=== PATIENT | female | born 1970 | race American Indian/Alaskan Native ===

== ENCOUNTER 2017-08-07 10:22 | Emergency (ER) | payer OTHER ==
[2017-08-07 10:34] VITALS: RESP 18; O2SAT 100
--- NOTE | 2017-08-07 10:36 | C.PDOC ---
History Of Present Illness 47 y/o female presents to ED with c/o epigastric abdominal pain since 2 am. Notes pain is intermittent. No exacerbating factors. Denies fever, nausea, vomiting, diarrhea, or other symptoms. Denies alcohol use. Time Seen by Provider: 08/07/17 10:35 Chief Complaint (Nursing): Abdominal Pain History Per: Patient History/Exam Limitations: no limitations Onset/Duration Of Symptoms: Days Current Symptoms Are (Timing): Still Present Location Of Pain/Discomfort: Epigastric Quality Of Discomfort: "Pain" Associated Symptoms: denies: Fever, Vomiting, Diarrhea Recent travel outside of the [place]: No Past Medical History Reviewed: Historical Data, Nursing Documentation, Vital Signs Vital Signs: Last Vital Signs Temp 98.5 F 08/07/17 12:24 Pulse 86 08/07/17 12:24 Resp 18 08/07/17 12:24 BP 128/82 08/07/17 12:24 Pulse Ox 100 08/07/17 12:24 - Medical History PMH: Arthritis Family History: States: Other Other Family History: non contributory - Social History Hx Alcohol Use: No Hx Substance Use: No - Immunization History Hx Tetanus Toxoid Vaccination: No Hx Influenza Vaccination: No Hx Pneumococcal Vaccination: No Review Of Systems Except As Marked, All Systems Reviewed And Found Negative. Constitutional: Negative for: Fever Cardiovascular: Negative for: Chest Pain Respiratory: Negative for: Shortness of Breath Gastrointestinal: Positive for: Abdominal Pain. Negative for: Nausea, Vomiting Skin: Negative for: Rash Physical Exam - Physical Exam Appears: Non-toxic, No Acute Distress Skin: Normal Color, Warm, Dry Head: Atraumatic, Normacephalic Oral Mucosa: Moist Chest: Symmetrical Cardiovascular: Rhythm Regular Respiratory: Normal Breath Sounds, No Rales, No Rhonchi, No Wheezing Gastrointestinal/Abdominal: Soft, Tenderness (epigastric), No Guarding, No Rebound Back: Normal Inspection Extremity: Normal ROM, Capillary Refill (< 2 sec.) Neurological/Psych: Oriented x3, Normal Speech, Normal Cognition ED Course And Treatment - Laboratory Results Result Diagrams: 08/07/17 11:17 08/07/17 11:17 O2 Sat by Pulse Oximetry: 100 (RA) Pulse Ox Interpretation: Normal Medical Decision Making Medical Decision Making: EKG: NSR 78, , nl axis, no acute ischemia 1218pm pt reports sx are improved Disposition - Disposition Referrals: [facility] [Outside] Disposition: HOME/ ROUTINE Disposition Time: 12:18 Condition: IMPROVED Additional Instructions: Please follow up with a primary doctor. Take an antacid such as maalox, mylanta , or TUMS to help with symptoms. Follow diet as directed in attached instructions. Return to the ER for any worsening symptoms or for any other concerns. Prescriptions: Famotidine [Pepcid] 20 mg PO DAILY #14 tab Instructions: Diet for Ulcers and Gastritis (ED) Forms: General Discharge Instructions, [facility] (Chinese) - Clinical Impression Clinical Impression: Epigastric pain - Scribe Statement The provider has reviewed the documentation as recorded by the Scribe SM All medical record entries made by the Scribe were at my direction and personally dictated by me. I have reviewed the chart and agree that the record accurately reflects my personal performance of the history, physical exam, medical decision making, and the department course for this patient. I have also personally directed, reviewed, and agree with the discharge instructions and disposition.
[2017-08-07] MEDS ORDERED: Alum-Mag Hydrox-Simethicone Susp (30 mL) PO STA (10:54)
[2017-08-07] MEDS ORDERED: Aluminum Hydroxide/Magnesium Hydroxide Susp (30 mL) ONE (10:59)
[2017-08-07 11:20] LABS: BASO % 0.6 % (0.0-2.0); EOS # 0.1 K/uL (0.0-0.7); HEMATOCRIT 38.1 % (34.0-47.0); LYMPH # 1.6 K/uL (1.0-4.3); LYMPH % 30.6 % (20.0-40.0); MEAN CELL VOLUME 81.1 fL (81.0-99.0); MEAN CORPUSCULAR HEMOGLOBIN 26.2 pg (27.0-31.0); MEAN CORPUSCULAR HGB CONC 32.3 g/dL (33.0-37.0); MEAN PLATELET VOLUME 10.2 fL (7.2-11.7); MONO # 0.5 K/uL (0.0-0.8); MONO % 9.9 % (0.0-10.0); NRBC % 0.1 % (0.0-2.0); RED CELL DISTRIBUTION WIDTH 16.1 % (11.5-14.5); WHITE BLOOD COUNT 5.1 K/uL (4.8-10.8)
[2017-08-07 11:35] LABS: ALKALINE PHOSPHATASE 41 U/L (38-126); ALT/SGPT 23 U/L (9-52); AST/SGOT 23 U/L (14-36); BILIRUBIN,TOTAL 0.8 mg/dL (0.2-1.3); BLOOD UREA NITROGEN 12 mg/dL (7-17); CALCIUM 8.8 mg/dl (8.6-10.4); CARBON DIOXIDE 24 mmol/L (22-30); CHLORIDE 100 mmol/L (98-107); GFR AFRICAN-AMERICAN > 60; GLUCOSE,RANDOM 81 mg/dL (65-105); POTASSIUM 3.8 mmol/L (3.6-5.2); SODIUM 136 mmol/L (132-148); TOTAL PROTEIN 8.5 g/dL (6.3-8.3)
[2017-08-07 11:46] LABS: RBC URINE 1 /hpf (0-3); URINE BILIRUBIN NEGATIVE (NEGATIVE); URINE BLOOD NEGATIVE (NEGATIVE); URINE COLOR Yellow (YELLOW); URINE GLUCOSE (UA) NORMAL (Normal); URINE KETONE NEGATIVE (NEGATIVE); URINE LEUKOCYTE ESTERASE NEG Leu/uL (Negative); URINE PROTEIN NEGATIVE (NEGATIVE); URINE UROBILINOGEN NORMAL mg/dL (0.2-1.0); WBC URINE < 1 /hpf (0-5)
[2017-08-07 12:25] VITALS: BP 128/82; PULSE 86; TEMP 98.5
== END 2017-08-07 12:25 | disposition home or self-care (01) ==
LOC: C.ER 10:22
DX: R10.13 Epigastric pain (principal)

== ENCOUNTER 2018-12-25 08:50 | Emergency (ER) | payer OTHER ==
[2018-12-25 09:02] VITALS: TEMP 97.8; O2SAT 99
--- NOTE | 2018-12-25 09:48 | C.PDOC ---
Time Seen by Provider: 12/25/18 09:17 Chief Complaint (Nursing): Female Genitourinary History Per: Patient History/Exam Limitations: no limitations Onset/Duration Of Symptoms: Other Current Symptoms Are (Timing): Still Present Severity: Mild Associated Symptoms: Chills. denies: Nausea, Diarrhea, Loss Of Appetite, Constipation Alleviating Factors: OTC Meds Abnormal Vaginal Bleeding: No Last Menstral Period: 3 months ago : 0 Past Medical History Reviewed: Historical Data, Nursing Documentation, Vital Signs Vital Signs: Last Vital Signs Temp 97.8 F 12/25/18 08:59 Pulse 86 12/25/18 08:59 Resp 20 12/25/18 08:59 BP 143/90 12/25/18 08:59 Pulse Ox 99 12/25/18 08:59 - Medical History PMH: Arthritis - Social History Hx Alcohol Use: No Hx Substance Use: No - Immunization History Hx Tetanus Toxoid Vaccination: No Hx Influenza Vaccination: No Hx Pneumococcal Vaccination: No ED Course And Treatment O2 Sat by Pulse Oximetry: 99 Disposition - Disposition
--- NOTE | 2018-12-25 09:52 | C.PDOC ---
History Of Present Illness 48 year old G0 female with no pmhx presents to ED with complaints of menstrual cessation for past 3 months. Patient reports associated hot flashes at night, thinning of hair; reports her mother went into menopause in her early 40s. Reports regular menstrual periods prior to last 3 months. Denies vaginal discharge, spotting, pelvic pain, rash, current sexual activity or use of contraceptive device, abnormal PAPs. <Ella Vila - Last Filed: 12/25/18 10:01> History Per: Patient History/Exam Limitations: no limitations Onset/Duration Of Symptoms: Persistent Current Symptoms Are (Timing): Still Present Severity: Mild Associated Symptoms: Chills. denies: Vomiting, Diarrhea, Chest Pain, Constipation, Urinary Symptoms Abnormal Vaginal Bleeding: Yes Last Menstral Period: 3 months ago : 0 <Ella Vila - Last Filed: 12/25/18 10:01> <Federico Jerome DO - Last Filed: 12/25/18 18:39> Time Seen by Provider: 12/25/18 09:17 Chief Complaint (Nursing): Female Genitourinary Past Medical History Reviewed: Historical Data, Nursing Documentation, Vital Signs Vital Signs: Last Vital Signs Temp 97.8 F 12/25/18 08:59 Pulse 86 12/25/18 08:59 Resp 20 12/25/18 08:59 BP 143/90 12/25/18 08:59 Pulse Ox 99 12/25/18 08:59 - Medical History PMH: Arthritis Family History: States: No Known Family Hx - Social History Hx Tobacco Use: No Hx Alcohol Use: No Hx Substance Use: No - Immunization History Hx Tetanus Toxoid Vaccination: No Hx Influenza Vaccination: No Hx Pneumococcal Vaccination: No <Ella Vila - Last Filed: 12/25/18 10:01> Vital Signs: Last Vital Signs Temp 97.8 F 12/25/18 08:59 Pulse 75 12/25/18 10:00 Resp 18 12/25/18 10:00 BP 120/74 12/25/18 10:00 Pulse Ox 99 12/25/18 10:01 <Federico Jerome DO - Last Filed: 12/25/18 18:39> Review Of Systems Constitutional: Positive for: Chills, Sweats Cardiovascular: Negative for: Chest Pain, Palpitations Respiratory: Negative for: Shortness of Breath Gastrointestinal: Negative for: Nausea, Diarrhea, Constipation Genitourinary: Negative for: Dysuria, Vaginal Discharge, Vaginal Bleeding, Pelvic Pain Skin: Negative for: Rash <Ella Vila - Last Filed: 12/25/18 10:01> Physical Exam - Physical Exam Appears: Non-toxic, No Acute Distress Skin: Normal Color, Warm, Dry Head: Atraumatic, Normacephalic Eye(s): bilateral: Normal Inspection, EOMI Neck: Normal Lymphatic: No Adenopathy Cardiovascular: Rhythm Regular Respiratory: Normal Breath Sounds Gastrointestinal/Abdominal: Normal Exam, Bowel Sounds, Soft, No Tenderness, No Distention Extremity: No Pedal Edema, No Calf Tenderness Neurological/Psych: Oriented x3 <Ella Vila - Last Filed: 12/25/18 10:01> ED Course And Treatment - Laboratory Results Urine POC: Negative O2 Sat by Pulse Oximetry: 99 Pulse Ox Interpretation: Normal <Ella Vila - Last Filed: 12/25/18 10:01> Medical Decision Making Medical Decision Makin48 year old female with complaints of no menstruation x3 months [id number] Urine preg-negative No further workup indicated Patient instructed to follow up w/ rn travel <Ella Vila - Last Filed: 12/25/18 10:01> Disposition Counseled Patient/Family Regarding: Diagnosis, Need For Followup - Disposition Disposition Time: 09:50 <Ella Vila - Last Filed: 12/25/18 10:01> <Federico Jerome DO - Last Filed: 12/25/18 18:39> - Disposition Referrals: [facility]Outside] [facility] [Outside] Disposition: HOME/ ROUTINE Condition: GOOD Additional Instructions: MJ ALONSO, thank you for letting us take care of you today. The emergency medical care you received today was directed at your acute symptoms. If you were prescribed any medication, please fill it and take as directed. It may take several days for your symptoms to resolve. Return to the Emergency Department if your symptoms worsen, do not improve, or if you have any other problems. Please contact your doctor or call one of the physicians/clinics you have been referred to that are listed on the Patient Visit Information form that is included in your discharge packet. Bring any paperwork you were given at discharge with you along with any medications you are taking to your follow up visit. Our treatment cannot replace ongoing medical care by a primary care clementine hinkle outside of the emergency department. Thank you for allowing the [facility] team to be part of your care today. Follow up with [facility] in 5-7 days for re-evaluation and further management. 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 ESHA has examined the patient and agrees with the treatment plan. <Federico Jerome DO - Last Filed: 12/25/18 18:39>
[2018-12-25 10:02] VITALS: BP 120/74; PULSE 75; RESP 18
== END 2018-12-25 10:01 | disposition home or self-care (01) ==
LOC: C.ER 08:50
DX: N95.1 Menopausal and female climacteric states (principal)